=== PATIENT | male | born 1975 | race Two or more races ===

== ENCOUNTER 2024-08-19 11:19 | Emergency (ER) | payer MEDICAID, SELFPAY ==
[2024-08-19 11:38] VITALS: BP 188/126; PULSE 72; RESP 18; TEMP 36.8; O2SAT 97; BMI 30.5
--- NOTE | 2024-08-19 11:38 | XR_ITS ---
Examination: CT abdomen and pelvis without contrast. Coronal 3-D reconstructions. Sagittal 2-D reconstructions. Date and time of exam:August 19 2024 mm 7 hours INDICATIONS: Right lower abdominal pain right flank pain today, history kidney stones, 4 mm lower pole right renal calculus on CT stone study May 26, 2000 CTDI: vol (mGy): 9.19 DLP: (mGycm): 614 Technique: Axial images of the abdomen have been obtained, 3 mm slice thickness Intravenous contrast material has not been administered. Low dose protocols were performed. One or more of the following dose reduction techniques were used; automated exposure control, adjustment of the mA and/or KV according to patient size, use of iterative reconstruction technique. Findings: Diffuse fatty liver Stable small hyperechoic area of liver parenchyma 19 mm in the medial right lobe compared to May 26, 2023 No gallstones Spleen not enlarged No pancreatic or adrenal mass Mild right hydronephrosis, 4 mm lower pole right renal calculus, 2 mm right ureterovesical junction calculus Aorta normal size Normal appendix No bowel obstruction No prostatomegaly No bladder calculi Minimal anterolisthesis L5 on S1 IMPRESSION: Mild right hydronephrosis secondary to 2 mm distal right ureterovesical junction calculus
--- NOTE | 2024-08-19 11:39 | PD.EDABDPN ---
ED Abdominal Pain RME/HPI General Chief Complaint: Abdominal Pain Stated complaint: ABD PAIN, VOMITING Time seen by provider: 08/19/24 11:26 Arrival date/time: 08/19/24 11:19 RME / HPI RME / HPI narrative: 48-year-old male patient with no significant medical history, came in for evaluation regarding right lower quadrant pain. Onset of symptoms about 2 hours prior to ER visit initially as right flank pain now radiating to the right lower quadrant pain, described as sharp pain, severity 10 out of 10 associated with vomiting. Patient denies any fever denies any dysuria denies any nocturia denies any other complaints denies any surgery of the abdomen. Related Data Previous Rx's ?Medication ?Instructions ?Recorded ibuprofen 800 mg tablet 800 mg PO TID PRN pain #30 tabs 03/29/19 naproxen 375 mg tablet 375 mg PO BID PRN pain #30 tabs 05/26/23 ibuprofen 800 mg tablet 800 mg PO Q8H PRN pain #30 tabs 08/19/24 tamsulosin 0.4 mg capsule (Flomax) 0.4 mg PO QDAY #10 caps 08/19/24 Allergies Allergy/AdvReac Type Severity Reaction Status Date / Time Penicillins Allergy Mild BLURRY Verified 08/19/24 11:21 VISION Review of Systems Review of Systems Narrative Review of Systems: Review of system reviewed and within normal limits except mentioned in HPI ED Exam Narrative Physical exam: VITAL SIGNS: Reviewed. GENERAL APPEARANCE: Alert and interactive, follows commands, no acute distress, HEAD AND FACE: Non-traumatic. ENT: PERRL, pink conjunctivitis, eyelid no trauma, Mucous membrane moist. NECK: Supple, nontender, no nuchal rigidity. CHEST: No tenderness, no crepitus, no paradoxical movement, no retractions. LUNGS: Clear, well ventilated, symmetric, no rales, no wheezing, no ronchi, no stridor, good breath sounds bilaterally. HEART: Regular rate, regular rhythm, no murmur, no gallops. ABDOMEN: Soft, positive bowel sounds, nondistended, no guarding, right lower quadrant tenderness, no rebound, no masses, RECTAL: Deferred. GENITAL: Deferred. NEUROLOGICAL: Gross motor function intact sensory function intact, Appropriate for age. MUSCULOSKELETAL: low back nontender, full range of motion. EXTREMITIES: Nontender, full range of motion. SKIN: Color pink, dry, no rash, no lacerations, no abrasions, no contusions. LYMPHATICS: Deferred. Course Quality Measures none Orders Category Date Time Status CT abdomen pelvis wo con Stat Exams 08/19/24 11:38 Completed CBC Stat Lab 08/19/24 12:03 Completed Comprehensive Metabolic Panel Stat Lab 08/19/24 12:03 Completed Lipase Stat Lab 08/19/24 12:03 Completed Partial Thromboplastin Time Stat Lab 08/19/24 12:03 Completed Prothrombin Time with INR Stat Lab 08/19/24 12:03 Completed UA, C/S IF [Urinalysis, C/S if Indicated] Stat Lab 08/19/24 13:00 Completed Urine Culture Stat Lab 08/19/24 13:00 Received Ketorolac Inj [Toradol Inj] Med 08/19/24 11:38 Discontinued 60 mg IM X1 ONE Ondansetron Odt [Zofran Odt] Med 08/19/24 11:38 Discontinued 4 mg PO X1 ONE Vital Signs Vital signs: Vital Signs Temperature 98.2 F 08/19/24 11:38 Pulse Rate 72 08/19/24 11:38 Respiratory Rate 18 08/19/24 11:38 Blood Pressure 188/126 H 08/19/24 11:38 Pulse Oximetry (%) 97 08/19/24 11:38 Oxygen Delivery Method Room Air 08/19/24 11:38 Abdominal Pain MDM MDM Narrative MDM Narrative:: 48-year-old male patient with no significant medical history, came in for evaluation regarding right lower quadrant pain. Onset of symptoms about 2 hours prior to ER visit initially as right flank pain now radiating to the right lower quadrant pain, described as sharp pain, severity 10 out of 10 associated with vomiting. Patient denies any fever denies any dysuria denies any nocturia denies any other complaints denies any surgery of the abdomen. Laboratory workup all came back unremarkable except for hematuria no sign of UTI. CT scan of the abdomen showed Mild right hydronephrosis secondary to 2 mm distal right ureterovesical junction calculus Patient received Toradol IM with complete resolution of symptoms. Patient data External records reviewed:: None Clinical information provided by:: patient Social determinants that could affect healthcare access:: none Patient has the following chronic illnesses:: None How is presenting disease/condition affected by chronic disease/condition?: no chronic disease Evaluation data The following diagnostics were reviewed and interpreted by me:: lab results and radiology exam(s) Lab and/or radiology exams considered but not ordered:: None Interpretation Summary: Laboratory workup all came back unremarkable except for hematuria no sign of UTI. CT scan of the abdomen showed Mild right hydronephrosis secondary to 2 mm distal right ureterovesical junction calculus Medications / Prescriptions Medications or Prescriptions considered but not ordered:: None Medication administrations:: Medication Administration History Discontinued Medications Ketorolac Tromethamine (Ketorolac Inj 60 Mg/2 Ml Vial) 60 mg IM X1 ONE Stop: 08/19/24 11:39 Last Admin: 08/19/24 11:47 Dose: 60 mg Documented By: FRANCISCO Ondansetron HCl (Ondansetron Odt 4 Mg Tabrap) 4 mg PO X1 ONE; Protocol Stop: 08/19/24 11:39 Last Admin: 08/19/24 11:50 Dose: 4 mg Documented By: FRANCISCO Toradol and Zofran Consultations Consultation(s) initiated? (list below): No Diagnosis Differential diagnosis abdominal pain: abdominal pain, calculus of kidney and other (Ureterolithiasis) Most likely diagnosis given after review of the tests above:: Ureterolithiasis Admission Indicated Admission indicated?: not indicated Explain why admission is indicated or not indicated:: Stable Admission Request Was there a request for admission?: No Disposition Plan Disposition Plan: Discharge Discharge Attestation Discharge Attestation: The patient was given an opportunity to ask questions and understood the discharge instructions. Discharge instructions specifically effects, indications for sooner follow up or return to the emergency department, and the expected course of current diagnosis. Patient condition: Stable Discharge Plan Plan Patient Disposition: HOME (Self Care) Disposition Comment: stable Prescriptions/Referrals Prescriptions/Med Rec: New tamsulosin [Flomax] 0.4 mg capsule 0.4 mg PO QDAY Qty: 10 0RF ibuprofen 800 mg tablet 800 mg PO Q8H PRN (Reason: pain) Qty: 30 0RF No Action ibuprofen 800 mg tablet 800 mg PO TID PRN (Reason: pain) Qty: 30 0RF naproxen 375 mg tablet 375 mg PO BID PRN (Reason: pain) Qty: 30 0RF Referrals: No Primary/Family,Physician [Primary Care Provider] - In 1 week Problem List Clinical Impression: Ureterolithiasis Patient/Caregiver Discharge Instructions Discharge Activity: activity as tolerated Education Materials: Preventing Kidney Stones Additional Instructions: Thank you for the opportunity for serving you today. You are stable for discharged . You are advised to: Follow-up with your PCP in 1 to 2 days ask for referral to urologist Return to ED for worsening of symptoms Increase oral fluids Take medication as prescribed Print Language: Tunisian Stand Alone Forms: [employer] Award Info., Patient Portal Info Letter PA/BRANDON Supervising Physician PA/BRANDON Supervising Physician: MD nancie
[2024-08-19] MEDS: KETOROLAC INJ 60 MG/2 ML VIAL IM (11:47)
[2024-08-19] MEDS: ONDANSETRON ODT 4 MG TABRAP PO (11:50)
[2024-08-19 12:18] LABS: Basophils # (Auto) 0.1 Thou/mm3 (0.0-0.2); Basophils % (Auto) 1 % (0-2.5); Eosinophils # (Auto) 0.3 Thou/mm3 (0.0-0.5); Eosinophils % (Auto) 4 % (0-10); Hematocrit 43.5 % (41.0-53.0); Hemoglobin 15.1 g/dL (13.5-16.0); Immature Granulocytes % (Auto) 0 % (0-0); Immature Granulocytes Auto 0.02 Thou/mm3 (0.00-0.00); Lymphocytes # (Auto) 2.1 Thou/mm3 (1.0-4.8); Lymphocytes % (Auto) 26 % (10-50); Mean Corpuscular HGB Conc 34.7 g/dl (31.0-37.0); Mean Corpuscular Hemoglobin 29.5 pg (25.0-35.0); Mean Corpuscular Volume 85 fL (80-100); Monocytes # (Auto) 0.7 Thou/mm3 (0.0-0.8); Monocytes % (Auto) 8 % (0-12); Neutrophils % (Auto) 61 % (37-80); Nucleated Red Blood Cell % 0 /100 WBC (0); Platelet Count 244 Thou/mm3 (140-440); RDW Standard Deviation 38.2 fL (35.1-43.9); Red Blood Count 5.11 Miln/mm3 (4.50-5.90); White Blood Count 8.2 Thou/mm3 (3.8-10.6)
[2024-08-19 12:39] LABS: Partial Thromboplastin Time 22.8 Seconds (22.0-36.0); Prothrombin Time 10.9 Seconds (9.0-12.2)
[2024-08-19 12:53] LABS: Alanine Aminotransferase 21 U/L (10-49); Albumin, Serum 4.7 gm/dL (3.5-5.0); Albumin/Globulin Ratio 1.5 (1.2-2.2); Alkaline Phosphatase 83 U/L (46-116); Anion Gap 6 (7-16); BUN/Creatinine Ratio 16 Ratio (12-20); Bilirubin,Total 1.1 mg/dL (0.3-1.2); Blood Urea Nitrogen 18 mg/dL (9-23); Carbon Dioxide 27.2 mMol/L (20.0-31.0); Chloride 103 mMol/L (98-107); Creatinine (Component) 1.1 mg/dL (0.6-1.3); Estimated Creatinine Clearance 88.1 mL/min (>60); Globulin 3.1 gm/dL (2.3-3.5); Glucose 178 mg/dL (74-106); Lipase 28 U/L (12-53); Osmolality,Calculated 277 (275-295); Potassium 5.4 mMol/L (3.4-5.1); Sodium 136 mMol/L (136-145); Total Protein 7.8 gm/dL (5.7-8.2); eGFR > 60 See Note
[2024-08-19 12:59] LABS: Aspartate Amino Transferase 21 U/L (0-34)
[2024-08-19 13:11] LABS: Collection Type, Urine Clean Catch
[2024-08-19 13:59] LABS: Bacteria,Urine Rare; Bilirubin,Urine Negative (Negative); Blood,Urine 3+ (Negative); Color,Urine Yellow (Lt Yel-Yel); Glucose, Urine Negative (Negative); Ketones,Urine 1+ (Negative); Leukocyte Esterase,Urine Negative (Negative); Nitrite,Urine Negative (Negative); Protein,Urine 1+ (Neg - Trace); RBC,Urine 249 /hpf (0-3); Squamous Epithelial Cell,Urine < 1 /hpf (0-5); Urobilinogen,Urine Negative mg/dL (0.0-1.0); WBC,Urine 13 /hpf (0-5)
[2024-08-19 14:03] LABS: Clarity,Urine Hazy (Clear/Hazy); Culture Indicated,Urine Yes
== END 2024-08-19 14:36 | disposition home or self-care (01) ==
PROVIDERS: Nurse Practitioner Family; Emergency Provider Emergency Medicine
DX: N13.2 Hydronephrosis with renal and ureteral calculous obstruction (principal)
CPT/HCPCS: 36415; 74176; 80053; 81001; 83690; 85025; 85610; 85730; 87086; 96372; 99284; J1885; Q0162

== ENCOUNTER 2024-12-14 20:12 | Emergency (ER) | payer MEDICAID, SELFPAY ==
[2024-12-14 20:13] VITALS: BMI 31.6
[2024-12-14 22:07] VITALS: BP 165/121; PULSE 81; RESP 18; TEMP 36.6; O2SAT 97
[2024-12-14] MEDS: NAPROXEN 250 MG TABLET 500 MG PO (22:37)
--- NOTE | 2024-12-14 23:11 | PD.EDEXREM ---
ED Extremity Problem RME/HPI General Chief complaint: Extremity Problem,Nontraumatic Stated complaint: RIGHT SHOULDER PAIN Time Seen by Provider: 12/14/24 22:30 Arrival date/time: 12/14/24 20:12 48M with no significant PMH presents to ED with 1 month of worsening R shoulder pain that started after he pulled something heavy at work. Patient denies CP and SOB, as well as fall. Limitations: no limitations Related Data Previous Rx's ?Medication ?Instructions ?Recorded ibuprofen 800 mg tablet 800 mg PO TID PRN pain #30 tabs 03/29/19 naproxen 375 mg tablet 375 mg PO BID PRN pain #30 tabs 05/26/23 ibuprofen 800 mg tablet 800 mg PO Q8H PRN pain #30 tabs 08/19/24 tamsulosin 0.4 mg capsule (Flomax) 0.4 mg PO QDAY #10 caps 08/19/24 Allergies Allergy/AdvReac Type Severity Reaction Status Date / Time Penicillins Allergy Mild BLURRY Verified 08/19/24 11:21 VISION Review of Systems Review of Systems Systems Reviewed: All systems reviewed, normal except as documented Constitutional Constitutional: Reports system reviewed and no additional complaints, except as documented, Denies fever(s) and Denies headache(s) ENT Ears, Nose, Mouth, and Throat: Denies disequilibrium and Denies headache(s) Cardiovascular Cardiovascular: Reports system reviewed and no additional complaints, except as documented, Denies chest pain and Denies dyspnea Respiratory Respiratory: Reports system reviewed and no additional complaints, except as documented, Denies cough and Denies dyspnea Gastrointestinal Gastrointestinal: Reports system reviewed and no additional complaints, except as documented, Denies abdominal pain, Denies nausea and Denies vomiting Musculoskeletal Musculoskeletal: Reports as per HPI and Reports arthralgias Neurologic Neurologic: Reports system reviewed and no additional complaints, except as documented, Denies confusion, Denies disequilibrium and Denies headache(s) Psychiatric Psychiatric: Denies confusion Past Medical History Past Medical History CARDIAC: Negative Congestive Heart Failure RESPIRATORY: Negative Chronic Obstructive Pulmonary Disease (COPD) GENITOURINARY: Negative Renal Disease ENDOCRINE: Negative Diabetes Mellitus Type 1 or Diabetes Mellitus Type 2 Social History SMOKING STATUS: Never smoker ED Exam General Limitations: Present no limitations General appearance: Present alert and in no apparent distress Head Head exam: Present atraumatic Eye Eye exam: Present normal appearance, PERRL and EOMI ENT ENT exam: Present normal exam, normal oropharynx and mucous membranes moist Neck Neck exam: Present normal inspection, full ROM and trachea midline Chest Chest inspection: Present normal inspection and symmetric chest wall rise Respiratory Respiratory exam: Present normal lung sounds bilaterally Cardiovascular Cardiovascular exam: Present regular rate, normal rhythm and normal heart sounds Abdominal Exam Abdominal exam: Present soft and normal bowel sounds Extremities Exam Extremities exam: Present normal inspection and full ROM Back Exam Back exam: Present normal inspection and full ROM Neurological Exam Neurological exam: Present alert, oriented X3 and CN II-XII intact Psychiatric Psychiatric exam: Present normal affect and normal mood Skin Skin exam: Present warm, dry, intact and normal color Course Quality Measures none Orders Category Date Time Status Naproxen [Naprosyn] Med 12/14/24 22:33 Discontinued 500 mg PO X1 ONE Vital Signs Vital signs: Vital Signs Temperature 98 F 12/14/24 22:07 Pulse Rate 81 12/14/24 22:07 Respiratory Rate 18 12/14/24 22:07 Blood Pressure 165/121 H 12/14/24 22:07 Pulse Oximetry (%) 97 12/14/24 22:07 Oxygen Delivery Method Room Air 12/14/24 22:07 O2 at 97% on RA and WNLs Extremity Problem MDM Narrative MDM Narrative:: 48M with no significant PMH presents to ED with 1 month of worsening R shoulder pain that started after he pulled something heavy at work. Patient denies CP and SOB, as well as fall. Physical exam reveals no R shoulder tenderness. Pain is with ROM, which is intact. Patient is afebrile, calm, and alert. Meds and marriage and family counselor given. Patient data External records reviewed:: [facility] previous records Clinical information provided by:: patient Social determinants that could affect healthcare access:: none Patient has the following chronic illnesses:: none How is presenting disease/condition affected by chronic disease/condition?: no chronic disease Evaluation data The following diagnostics were reviewed and interpreted by me:: radiology exam(s) Lab and/or radiology exams considered but not ordered:: ordered Interpretation Summary: above Medications / Prescriptions Medications or Prescriptions considered but not ordered:: ordered Medication administrations:: Medication Administration History Discontinued Medications Naproxen (Naproxen 250 Mg Tablet) 500 mg PO X1 ONE Stop: 12/14/24 22:34 Last Admin: 12/14/24 22:37 Dose: 500 mg Documented By: KF above Consultations Consultation(s) initiated? (list below): No Diagnosis Extremity Problem Differential Diagnosis: herpes zoster, gout, cellulitis, superficial thrombophlebitis, deep venous thrombosis of upper extremity, lower extremity edema, deep vein thrombosis of lower extremity and other (shoulder pain) Most likely diagnosis given after review of the tests above:: shoulder pain Admission Indicated Admission indicated?: not indicated Admission Request Was there a request for admission?: No Disposition Plan Disposition Plan: Discharge Discharge Attestation Discharge Attestation: The patient and all family members were given an opportunity to ask questions and understood the discharge instructions. Discharge instructions specifically effects, indications for sooner follow up or return to the emergency department, and the expected course of current diagnosis. Patient condition: Stable Discharge Plan Plan Patient Disposition: HOME (Self Care) Discharge Disposition comment: Stable Prescriptions/Referrals Prescriptions/Med Rec: No Action ibuprofen 800 mg tablet 800 mg PO TID PRN (Reason: pain) Qty: 30 0RF naproxen 375 mg tablet 375 mg PO BID PRN (Reason: pain) Qty: 30 0RF tamsulosin [Flomax] 0.4 mg capsule 0.4 mg PO QDAY Qty: 10 0RF ibuprofen 800 mg tablet 800 mg PO Q8H PRN (Reason: pain) Qty: 30 0RF Problem List Clinical Impression: Right shoulder pain Patient/Caregiver Discharge Instructions Education Materials: ED Shoulder Pain, Uncertain Cause Additional Instructions: Please follow-up with PCP within 24-48 hours and return immediately if symptoms worsen. If problem persists, recommend outpatient PT and/or MRI follow-up. In the meantime, rest, use ice/heat, and/or compression. Print Language: Estonian Stand Alone Forms: Patient Portal Info Letter JANAE/BRANDON Supervising Physician JANAE/BRANDON Supervising Physician: Dr. Arreguin
== END 2024-12-14 22:43 | disposition home or self-care (01) ==
LOC: SERX 22:48
PROVIDERS: Emergency Provider Emergency Medicine
DX: M25.511 Pain in right shoulder (principal)
CPT/HCPCS: 99282; A9270